=== PATIENT | male | born 1990 | race Two or more races ===

== ENCOUNTER → 2019-07-18 | Outpatient (CLI) | payer OTHER ==
--- NOTE | 2019-07-18 14:28 | REP ---
CHEST X-RAY: Two views. HISTORY: Cough, fever, chills. FINDINGS: There is a fairly dense left upper lobe infiltrate consistent with pneumonia. There is fullness in the aortopulmonary window region of the mediastinum consistent with reactive adenopathy. Remaining lung [place] are clear. Pleural angles are sharp. Heart is not enlarged. Pulmonary vasculature is not increased. IMPRESSION: Left upper lobe infiltrate consistent with pneumonia. Fullness in the AP window region of the mediastinum indicates lymphadenopathy. Recommend followup films following treatment to document resolution of the radiographic findings. Electronically Signed by Junior Call MD 07/18/2019 03:20 P
== END ==
LOC: M LRY 13:28
PROVIDERS: ATTEND Physician Assistant
DX: R05 Cough (principal); R50.9 Fever, unspecified